=== PATIENT | male | born 1980 | race African-American/Black ===

== ENCOUNTER 2024-10-23 14:19 | Emergency (ER) | payer OTHER ==
[~2024-10-23] VITALS: Ht 177.8 cm; Wt 95.3 kg
[2024-10-23] MEDS: LIDOCAINE HCL 1% LOCAL INJ 20 ML VIAL INJ ONE (15:16)
[2024-10-23] MEDS: TETANUS/DIPHTHERIA TOX ADULT 0.5 ML SYR IM ONE (15:18)
[2024-10-23] MEDS: IBUPROFEN 600 MG TAB PO STA (15:19)
[2024-10-23] MEDS: HYDROCODONE/APAP 5MG-325MG TAB PO ONE (15:19)
[2024-10-23 17:55] VITALS: PULSE 76; RESP 18; TEMP 98.6; O2SAT 100
== END 2024-10-23 18:07 | disposition home or self-care (01) ==
LOC: ER 14:28
DX: S61.412A Laceration without foreign body of left hand, initial encounter (principal); S51.812A Laceration without foreign body of left forearm, initial encounter; V23.49XA Other motorcycle driver injured in collision with car, pick-up truck or van in traffic accident, initial encounter; Y92.488 Other paved roadways as the place of occurrence of the external cause; I10 Essential (primary) hypertension; E78.5 Hyperlipidemia, unspecified
CPT/HCPCS: 12004; 73090; 73130; 90471; 90714; 99284; J2003